=== PATIENT | female | born 2000 | race Caucasian/White ===

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

== ENCOUNTER 2021-10-27 11:12 | Emergency (ER) | payer OTHER ==
[~2021-10-27] VITALS: Ht 167.6 cm; Wt 92.3 kg
[2021-10-27 11:22] VITALS: BP 108/82; TEMP 98.1
[2021-10-27] MEDS ORDERED: ADDERALL10 MG PO (11:36)
[2021-10-27] MEDS ORDERED: DESYREL 50MG50 MG PO (11:36)
[2021-10-27] MEDS ORDERED: PERCOCET 325 MG1 TA2 PO (14:47)
[2021-10-27] MEDS ORDERED: FLEXERIL 1010 MG/TAB PO (14:47)
[2021-10-27] MEDS ORDERED: MOTRIN 800800 MG/TAB PO (14:47)
[2021-10-27 14:57] VITALS: PULSE 78
== END 2021-10-27 14:59 | disposition home or self-care (01) ==
LOC: COL.ER 11:12
DX: M54.16 Radiculopathy, lumbar region (principal); Z87.39 Personal history of other diseases of the musculoskeletal system and connective tissue
CPT/HCPCS: J2270

== ENCOUNTER 2021-12-16 20:26 | Emergency (ER) | payer OTHER ==
[~2021-12-16] VITALS: Ht 167.6 cm; Wt 93.2 kg
[~2021-12-16 20:26] MED LIST changes: +ADDERALL10 MG PO; +DESYREL 50MG50 MG PO; +FLEXERIL 1010 MG/TAB PO; +MOTRIN 800800 MG/TAB PO; +PERCOCET 325 MG1 TA2 PO
[2021-12-16 20:41] VITALS: BP 128/79
[2021-12-16 21:46] LABS: STREP SCREEN NEGATIVE
[2021-12-16] MEDS ORDERED: NAPROSYN500 MG PO (22:20)
[2021-12-16] MEDS ORDERED: FLONASEALLERGY NS (22:20)
[2021-12-16 22:40] VITALS: PULSE 96; TEMP 98.9
== END 2021-12-16 22:40 | disposition home or self-care (01) ==
LOC: COL.ER 20:26
PROVIDERS: Emergency Medicine
DX: U07.1 COVID-19 (principal); J06.9 Acute upper respiratory infection, unspecified

== ENCOUNTER 2022-01-19 23:41 | Emergency (ER) | payer OTHER ==
[~2022-01-19] VITALS: Ht 167.6 cm; Wt 93.2 kg
[~2022-01-19 23:41] MED LIST changes: +FLONASEALLERGY NS; +NAPROSYN500 MG PO
[2022-01-19 23:45] VITALS: TEMP 98.2
[2022-01-20 00:02] LABS: BASO # 0.1 K/mm3 (0.0-0.2); BASO % 0.7 % (0.0-2.0); EOS # 0.6 K/mm3 (0.0-0.7); EOS % 4.9 % (0.0-4.0); GRAN # 7.2 K/mm3 (1.4-6.5); GRAN % 61.3 % (42.2-75.2); HEMATOCRIT 43.6 % (35.0-45.0); LYMPH # 2.8 K/mm3 (1.2-3.4); LYMPH % 23.5 % (20.0-51.0); MEAN CELL VOLUME 89 fl (80.0-95.0); MEAN CORPUSCULAR HEMOGLOBIN 31 pg (26-32); MEAN CORPUSCULAR HGB CONC 34 g/dl (33.0-37.0); MONO % 8.8 % (1.7-9.3); PLATELET COUNT 509 K/mm3 (130-400); RED BLOOD COUNT 4.92 M/mm3 (4.10-5.30); REDCELL DISTRIBUTION WIDTH-CV 11.9 % (11.5-14.5)
[2022-01-20 00:19] LABS: COLLECTION METHOD CLEAN CATCH
[2022-01-20 00:20] LABS: ALANINE AMINOTRANSFERASE 38 U/L (0-55); ALKALINE PHOSPHATASE 89 U/L (40-150); ANION GAP 11 mmol/L (7-16); AST,SGOT 26 U/L (5-34); BILIRUBIN,TOTAL 0.3 mg/dL (0.2-1.2); BLOOD UREA NITROGEN 9 mg/dL (7-19); CALCIUM 9.3 mg/dL (8.4-10.2); CARBON DIOXIDE 22 mmol/L (22-29); CHLORIDE 106 mmol/L (98-107); GLUCOSE 102 mg/dL (70-99); POTASSIUM 3.8 mmol/L (3.5-4.5); SODIUM 139 mmol/L (136-145); TOTAL PROTEIN 7.9 gm/dL (6.2-8.1)
[2022-01-20] MEDS ORDERED: DESYREL 100MG100 MG PO (00:23)
[2022-01-20] MEDS ORDERED: ADDERALL10 MG PO (00:24)
[2022-01-20 00:27] LABS: TROPONIN-I < 0.010 ng/mL (0.00-0.033)
[2022-01-20 00:30] LABS: MUCOUS Present (NOT PRESENT); URINE BACTERIA Rare /hpf (NONE SEEN); URINE RBC 0-2 /hpf (0-2)
[2022-01-20 00:31] LABS: PH 5.5 (5.0-8.5); URINE APPEARANCE Clear (CLEAR/HAZY); URINE COLOR Yellow (YELLOW)
[2022-01-20 00:32] LABS: URINE BLOOD TRACE-INTACT (NEGATIVE); URINE GLUCOSE Negative (NEGATIVE); URINE KETONE Negative (NEGATIVE); URINE NITRATE Negative (NEGATIVE); URINE PROTEIN(semi-quant) Negative (NEGATIVE); URINE UROBILINOGEN 0.2 E.U/dL (0.2-1.0)
[2022-01-20 03:38] VITALS: BP 129/73; PULSE 77
== END 2022-01-20 03:39 | disposition home or self-care (01) ==
LOC: COL.ER 23:41
PROVIDERS: Emergency Medicine; Physician Assistant
DX: R10.31 Right lower quadrant pain (principal); D72.829 Elevated white blood cell count, unspecified; F17.290 Nicotine dependence, other tobacco product, uncomplicated; Z32.02 Encounter for pregnancy test, result negative
CPT/HCPCS: J1885; J2405; J7030; Q9967